=== PATIENT | male | born 1990 | race Two or more races ===

== ENCOUNTER 2022-07-04 11:39 | Emergency (ER) | payer OTHER ==
[~2022-07-04] VITALS: Ht 170.2 cm; Wt 85.7 kg
--- NOTE | 2022-07-04 11:54 | NUR ---
[id number] and [employer],per family he posted on social media "I will see you soon dad", +SI per family, facial pain and redness x 4 days, [employer] will put him on a hold. Patient denies suicidal ideation. To ER bed 7, hooked to monitor, changed to hosp gown,warm blanket provided. Patient states he had himself checked in [place], regarding his facial rashes "they did not swab or test the rashes, they just said for me to isolate". awaiting MD rankin.
[2022-07-04 12:26] LABS: BASOPHILS % (AUTO) 0.1 % (0.0-2.0); EOSINOPHILS % (AUTO) 7.5 % (0.0-6.0); HEMATOCRIT 38 % (39-51); HEMOGLOBIN 12.5 g/dL (13.5-17.5); LYMPHOCYTES # (AUTO) 1.5 K/uL (0.8-4.8); MEAN CORPUSCULAR HGB CONC 33 g/dl (31.0-36.0); MEAN CORPUSCULAR VOLUME 85 fL (80-96); MONOCYTES # (AUTO) 0.7 K/uL (0.1-1.30); MONOCYTES % (AUTO) 8.2 % (2.0-12.0); NEUTROPHILS # (AUTO) 5.2 K/uL (1.8-8.9); NEUTROPHILS % (AUTO) 65.2 % (43.0-81.0); PLATELET COUNT (AUTO) 440 K/uL (150-450); RED BLOOD CELL COUNT(AUTO) 4.49 MIL/uL (4.5-6.0)
[2022-07-04 12:35] LABS: CALCIUM, SERUM 8.5 mg/dL (8.5-10.1); CARBON DIOXIDE 31 mmol/L (21-32); CHLORIDE 101 mmol/L (98-107); GLUCOSE 96 mg/dL (74-106); POTASSIUM 4.5 mmol/L (3.5-5.1); SODIUM SERUM 135 mmol/L (136-145); UREA NITROGEN, BLOOD 7 mg/dL (7-18)
[2022-07-04 12:41] LABS: ALANINE AMINOTRANSFERASE 86 U/L (12-78); ALBUMIN 2.7 g/dL (3.4-5.0); ALCOHOL, BLOOD < 3 mg/dL (0-0); ALKALINE PHOSPHATASE 131 U/L (46-116); ASPARTATE AMINOTRANSFERASE 51 U/L (15-37); BILIRUBIN,DIRECT 0.1 mg/dL (0.0-0.2); BILIRUBIN,TOTAL 0.4 mg/dL (0.2-1.0); TOTAL PROTEIN, SERUM 9.4 g/dL (6.4-8.2)
[2022-07-04 12:46] LABS: ACETAMINOPHEN < 10 ug/ml (10-30)
[2022-07-04] MEDS ORDERED: CEPHALEXIN MONOHYDRATE 500 MG CAPSULE PO ONE ×2 (12:58→13:00)
--- NOTE | 2022-07-04 13:05 | NUR ---
RAPID COVID SWAB DONE AND SENT TO LAB
--- NOTE | 2022-07-04 13:10 | NUR ---
PATIENT NOT ABLE TO PROVIDE URINE SAMPLE AT THIS TIME, MADE AWARE
--- NOTE | 2022-07-04 13:51 | NUR ---
CALLED K[facility] FOR PSYCH EVAL ETA 1 HOUR
--- NOTE | 2022-07-04 14:53 | NUR ---
URINE SAMPLE COLLECTED AND SENT [facility]
--- NOTE | 2022-07-04 14:56 | NUR ---
CRISIS GARAGE DOOR SERVICE TECHNICIAN KAREN AT BEDSIDE
--- NOTE | 2022-07-04 15:15 | NUR ---
PER KAREN CRISIS INDUSTRIAL TRUCK DRIVER, WILL RECOMEND TO BREAK HOLD FOR PATIENT. MADE DR BIRD AWARE
[2022-07-04 15:16] VITALS: BP 124/70
--- NOTE | 2022-07-04 15:20 | NUR ---
see licensed clinical manager social media note recommendation to discontinue HOLD based on his assessment
--- NOTE | 2022-07-04 15:25 | NUR ---
CALLED OFFICE OF DR GALINDO, LEFT VOICEMAIL
[2022-07-04] MEDS ORDERED: SULFAMETH/TRIMETH 800/160 MG 1 UDTAB TABLET PO ONE (15:30)
[2022-07-04] MEDS ORDERED: SULFAMETH/TRIMETH 800/160 MG 1 UDTAB TABLET ONE (15:35)
--- NOTE | 2022-07-04 15:42 | NUR ---
patient provided w sandwich and soda. tolerated well
[2022-07-04 15:49] LABS: BILIRUBIN,URINE NEGATIVE (NEGATIVE); COLOR,URINE YELLOW (YELLOW); LEUKOCYTE ESTERASE ,URINE NEGATIVE (NEGATIVE); NITRITE, URINE NEGATIVE (NEGATIVE); PH,URINE 6.5 (5.0-8.0); PROTEIN,URINE NEGATIVE (NEGATIVE); UGLUCOSE NEGATIVE (NEGATIVE)
--- NOTE | 2022-07-04 16:00 | NUR ---
PATIENT NOTICED NOT IN HIS ROOM. MADE MD AWARE
[2022-07-04 16:01] LABS: BACTERIA,URINE None seen /HPF (None Seen); RBC,URINE 0-2 /HPF (0-2); SQUAMOUS EPITHELIAL CELL,UR 0-2 /HPF (None Seen); WBC,URINE 0-2 /HPF (0-3)
--- NOTE | 2022-07-04 16:02 | NUR ---
PRIOR TO AWAITING DISCHARGE INSTRUCTIONS, PATIENT ELOPED. DR BIRD MADE AWARE
--- NOTE | 2022-07-04 16:05 | NUR ---
CONTACTED [employer] TO REPORT MISSING PATIENT.
--- NOTE | 2022-07-04 16:36 | NUR ---
CALLED [facility] SPOKE TO VICE PRESIDENT OF INSTRUCTION [id number] REGARDING ELOPEMENT, STATES WILL NOTIFY POLICE
== END 2022-07-04 17:00 | disposition left against medical advice (07) ==
LOC: ER 11:44
DX: R45.851 Suicidal ideations (principal); A46 Erysipelas; Z20.822 Contact with and (suspected) exposure to COVID-19; Z53.20 Procedure and treatment not carried out because of patient's decision for unspecified reasons
CPT/HCPCS: 99285; 85025; 80048; 80076; 81001; 36415; 87426; 80143; 80320; 80307; C9803; G0480